=== PATIENT | female | born 1975 | race African-American/Black ===

== ENCOUNTER 2018-06-11 14:00 | Inpatient (IN) | payer OTHER ==
[2018-06-11 16:08] VITALS: BMI 25.9
[2018-06-11] MEDS ORDERED: chlordiazePOXIDE HCL 25 MG CAPSULE PO SCH (17:00)
--- NOTE | 2018-06-11 17:23 | HP ---
CIWA Score Nausea/Vomitin-No Nausea/No Vomiting Muscle Tremors: 4-Moderate,w/Arms Extend Anxiety: 4-Mod. Anxious/Guarded Agitation: 4-Moderately Restless Paroxysmal Sweats: No Perspiration Orientation: 0-Oriented Tacttile Disturbances: 0-None Auditory Disturbances: 0-None Visual Disturbances: 0-None Headache: 0-None Present CIWA-Ar Total Score: 12 - Admission Criteria OASAS Guidelines: Admission for Medically Managed Detox: Requires at least one of the followin. CIWA greater than 12 2. Seizures within the past 24 hours 3. Delirium tremens within the past 24 hours 4. Hallucinations within the past 24 hours 5. Acute intervention needed for co occurring medical disorder 6. Acute intervention needed for co occurring psychiatric disorder 7. Severe withdrawal that cannot be handled at a lower level of care (continued vomiting, continued diarrhea, abnormal vital signs) requiring intravenous medication and/or fluids 8. Patient presents the following: CIWA greater than 12, Acute intervention needed for co-occurring med or psych disorder Admission Criteria Met: Admission criteria met Admission ROS [facility] Allergies/Adverse Reactions: Allergies Allergy/AdvReac Type Severity Reaction Status Date / Time No Known Allergies Allergy Verified 06/11/18 17:16 History of Present Illness: patient here requesting detox from etoh use reports 1/5 /day and 4 shireen x 15 years, first age of use 1 . This is the patient's second detox , prior at [facility] April 2018 , admin d/c . Current MARIBEL 0.073 , latest use today , usually starts drinking around 9 am, reports tremors , nausea if not drinking + blackouts, no seizures , + falls while intoxicated , most recently March 2018 no fractures . Does not drive . Currently in outpatient clinic [facility]. tobacco : 06/03-1/ ppd cannabis : 1 oz q 3 d . cocaine : " there is no limit " , 800-1000 $ / 24 hrs xanax - rx latest 2 mo ago PMHX : hypothyroidism, gerd , migraine SANTIAGO , asthma ( [place] / [place] ) , HIV + dx 1 mo ago [facility]version [facility] RF = ST , AVN left hip, left knee, PSHx : partial thyroidectomy 2004 , CHIARA & BSO 2016 , inder , Sp fundoplication for hiatal hernia , C-sx x 3 , umbilical hernia , right foot bunionectomy Psych : bipolar d/o , panic d/o anxiety , agoraphobia , SAD has 6 adult children SHx : lives alone , unemployed , online college , on SSI Exam Limitations: No Limitations - Ebola screening Have you traveled outside of the country in the last 21 days: No (N) Have you had contact with anyone from an Ebola affected area: No Have you been sick,other than usual withdrawal symptoms: No Do you have a fever: No - Review of Systems Constitutional: See HPI, Other EENT: reports: See HPI, Other (glasses - bifocals , denies dysphagia) Respiratory: reports: No Symptoms reported Cardiac: reports: No Symptoms Reported GI: reports: See HPI : reports: No Symptoms Reported Musculoskeletal: reports: Joint Pain (left hip and left knee) Integumentary: reports: Dryness Neuro: reports: See HPI Endocrine: reports: See HPI Psychiatric: reports: Orientated x3, Agitated, Anxious Patient History - Smoking Cessation Smoking history: Current every day smoker Have you smoked in the past 12 months: Yes Hx Chewing Tobacco Use: No Initiated information on smoking cessation: No Family Disease History - Family Disease History Family Disease History: Other: Father (MD d. age 39 ), Mother (d. AIDS age 39) , Brother (18 half - siblings does not keep in touch ), Son (A & W x5 ), Daughter (sickle cell trait ) Other Family History: 1 granddaughter with sickle cell trait Admission Physical Exam BHS - Vital Signs Vital Signs: Vital Signs - 24 hr 06/11/18 16:04 Temperature 97.3 F L Pulse Rate 105 H Respiratory 18 Rate Blood Pressure 110/65 - Physical General Appearance: Yes: Mild Distress, Anxious HEENTM: Yes: EOMI, Hearing grossly Normal, Normocephalic, Normal Voice Respiratory: Yes: Chest Non-Tender, Lungs Clear, Normal Breath Sounds Neck: Yes: No masses,lesions,Nodules, Trachea in good position, Other (surgical scar) Breast: Yes: Breast Exam Deferred Cardiology: Yes: Regular Rhythm, Regular Rate, S1, S2, Tachycardia Abdominal: Yes: Normal Bowel Sounds, Non Tender, Soft Genitourinary: Yes: Within Normal Limits Back: Yes: Normal Inspection Musculoskeletal: Yes: Gait Steady, Joint Stiffness Extremities: Yes: Normal Range of Motion, Tremors Neurological: Yes: Motor Strength 5/5, Normal Mood/Affect Integumentary: Yes: Normal Color, Dry - Diagnostic (1) Alcohol dependence Current Visit: Yes Status: Acute Qualifiers: Substance use status: in withdrawal (2) Cocaine dependence Current Visit: Yes Status: Chronic Qualifiers: Substance use status: uncomplicated Qualified Code(s): F14.20 - Cocaine dependence, uncomplicated (3) Nicotine dependence Current Visit: Yes Status: Chronic Qualifiers: Nicotine product type: cigarettes (4) Cannabis dependence Current Visit: Yes Status: Chronic BHS Breath Alcohol Content Breath Alcohol Content: 0.073 Urine Pregancy Test - Result Urine Test Results: Negative- NO Line Present Urine Drug Screen - Results Drug Screen Negative: No Urine Drug Screen Results: THC-Marijuana, FRANCHESCA-Cocaine, BZO-Benzodiazepines
[2018-06-11] MEDS ORDERED: MAGNESIUM HYDROX 2400MG/30ML ORAL SUSPENSION 30 ML CUP PO PRN (17:57)
[2018-06-11] MEDS ORDERED: IBUPROFEN 400 MG TABLET (FP) PO PRN (17:57)
[2018-06-11] MEDS ORDERED: MAGNESIUM CITRATE 300 ML BOTTLE PO PRN (17:57)
[2018-06-11] MEDS ORDERED: guaiFENesin/D-METHORPHAN HB 10 ML UNIT-DOSE CUPS PO PRN (17:57)
[2018-06-11] MEDS ORDERED: NICOTINE POLACRILEX 2 MG GUM BC PRN (17:57)
[2018-06-11] MEDS ORDERED: MENTHOL/PHENOL 1 EACH UD MM PRN (17:57)
[2018-06-11] MEDS ORDERED: ACETAMINOPHEN 325 MG TABLET (FP) PO PRN (17:57)
[2018-06-11] MEDS ORDERED: chlordiazePOXIDE HCL 25 MG CAPSULE PO PRN (17:57)
[2018-06-11] MEDS ORDERED: MAG HYDROX/AL HYDROX/SIMETH 30 ML UNIT-DOSE CUP PO PRN (17:57)
[2018-06-11] MEDS ORDERED: P-EPHED 60MG/TRIPROLIDI 2.5MG TABLET PO PRN (17:57)
[2018-06-11] MEDS ORDERED: ALBUTEROL SO4 8 GM HFA INHALER IH PRN (18:01)
[2018-06-11] MEDS ORDERED: ALBUTEROL SO4 0.083% IH SOL 2.5 MG/3 ML VIAL.NEB. NEB PRN (18:01)
[2018-06-11] MEDS ORDERED: BENZOYL PEROXIDE 5% 60 GM GEL..GRAM. TP ONE (18:33)
[2018-06-11] MEDS ORDERED: MELATONIN 5 MG TABLETS PO PRN (22:00)
[2018-06-11] MEDS: chlordiazePOXIDE HCL 25 MG CAPSULE PO SCH ×2 (23:30)
[2018-06-11] MEDS: CLINDAMYCIN PHOSPHATE 1% TOPICAL GEL 30 GM TUBE TP SCH (23:32)
[2018-06-11] MEDS: BETAMETHASONE VALER 0.1% OINT 15 GM TUBE TP SCH (23:33)
[2018-06-11] MEDS: THIAMINE HCL 100 MG TABLET (FP) PO SCH (23:33)
[2018-06-12] MEDS: chlordiazePOXIDE HCL 25 MG CAPSULE PO SCH ×4 (05:52→22:30)
[2018-06-12] MEDS: LEVOTHYROXINE NA 25 MCG TABLET (FP) PO SCH (06:52)
[2018-06-12] MEDS ORDERED: LEVOTHYROXINE NA 75 MCG TABLET (FP) PO SCH (07:00)
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
[2018-06-12 10:51] LABS: HEMATOCRIT 37.6 % (32.4-45.2); MCH 28.9 pg (25.7-33.7); MCHC 31.8 g/dl (32.0-36.0); MEAN CELL VOLUME 90.8 fl (80-96); MEAN PLT VOLUME 9.1 fl (7.5-11.1); PLATELET COUNT 197 K/MM3 (134-434); RBC 4.14 M/mm3 (3.60-5.2); RDW 18.3 % (11.6-15.6); WHITE BLOOD COUNT 3.4 K/mm3 (4.0-10.0)
[2018-06-12 11:00] LABS: ALBUMIN 2.8 g/dl (3.4-5.0); ALK PHOS 66 U/L (45-117); ANION GAP 5 MMOL/L (8-16); BILIRUBIN,TOTAL 0.5 mg/dL (0.2-1); BLOOD UREA NITROGEN 17 mg/dL (7-18); CALCIUM 8.3 mg/dL (8.5-10.1); CHLORIDE 103 mmol/L (98-107); CO2 29 mmol/L (21-32); GLUCOSE,RANDOM 77 mg/dL (74-106); POTASSIUM 4.1 mmol/L (3.5-5.1); SGOT/AST 10 U/L (15-37); SGPT/ALT 16 U/L (13-61); SODIUM 137 mmol/L (136-145); TOT PROT 6.3 g/dl (6.4-8.2)
[2018-06-12] MEDS: CLINDAMYCIN PHOSPHATE 1% TOPICAL GEL 30 GM TUBE TP SCH ×2 (11:22→22:30)
[2018-06-12] MEDS: PANTOPRAZOLE 40 MG TABLET (FP) PO SCH (11:22)
[2018-06-12] MEDS: PRENATAL VITAMINS W/ FOLIC ACID TABLET (FP) PO SCH (11:23)
[2018-06-12] MEDS: NICOTINE 14 MG/24 HOURS TOPICAL PATCH TD SCH (11:23)
[2018-06-12] MEDS: DOLUTEGRAVIR SODIUM 50 MG TABLET (NON-FORMULARY) PO SCH (11:24)
[2018-06-12] MEDS: EMTRICITABINE 200MG/TENOFOVIR 300MG PO SCH (11:24)
[2018-06-12] MEDS: BETAMETHASONE VALER 0.1% OINT 15 GM TUBE TP SCH ×2 (11:25→22:30)
--- NOTE | 2018-06-12 14:59 | PN ---
S CIWA - CIWA Score Nausea/Vomitin-Mild Nausea/No Vomiting Muscle Tremors: 3 Anxiety: 1-Mildly Anxious Agitation: 2 Paroxysmal Sweats: 1-Minimal Palms Moist Orientation: 0-Oriented Tacttile Disturbances: 0-None Auditory Disturbances: 0-None Visual Disturbances: 0-None Headache: 1-Very Mild CIWA-Ar Total Score: 9 S Progress Note (SOAP) Subjective: tremor sweating mild gi distress Objective: 06/12/18 14:57 Vital Signs Temperature 97.5 F L 06/12/18 09:57 Pulse Rate 87 06/12/18 09:57 Respiratory Rate 18 06/12/18 09:57 Blood Pressure 101/66 06/12/18 09:57 O2 Sat by Pulse Oximetry (%) Laboratory Last Values WBC 3.4 K/mm3 (4.0-10.0) L 06/12/18 07:50 RBC 4.14 M/mm3 (3.60-5.2) 06/12/18 07:50 Hgb 12.0 GM/dL (10.7-15.3) 06/12/18 07:50 Hct 37.6 % (32.4-45.2) 06/12/18 07:50 MCV 90.8 fl (80-96) 06/12/18 07:50 MCH 28.9 pg (25.7-33.7) 06/12/18 07:50 MCHC 31.8 g/dl (32.0-36.0) L 06/12/18 07:50 RDW 18.3 % (11.6-15.6) H 06/12/18 07:50 Plt Count 197 K/MM3 (134-434) 06/12/18 07:50 MPV 9.1 fl (7.5-11.1) 06/12/18 07:50 Sodium 137 mmol/L (136-145) 06/12/18 07:50 Potassium 4.1 mmol/L (3.5-5.1) 06/12/18 07:50 Chloride 103 mmol/L (98-107) 06/12/18 07:50 Carbon Dioxide 29 mmol/L (21-32) 06/12/18 07:50 Anion Gap 5 MMOL/L (8-16) L 06/12/18 07:50 BUN 17 mg/dL (7-18) 06/12/18 07:50 Creatinine 1.0 mg/dL (0.55-1.3) 06/12/18 07:50 Creat Clearance w eGFR > 60 (>60) 06/12/18 07:50 Random Glucose 77 mg/dL (74-106) 06/12/18 07:50 Calcium 8.3 mg/dL (8.5-10.1) L 06/12/18 07:50 Total Bilirubin 0.5 mg/dL (0.2-1) 06/12/18 07:50 AST 10 U/L (15-37) L 06/12/18 07:50 ALT 16 U/L (13-61) 06/12/18 07:50 Alkaline Phosphatase 66 U/L (45-117) 06/12/18 07:50 Total Protein 6.3 g/dl (6.4-8.2) L 06/12/18 07:50 Albumin 2.8 g/dl (3.4-5.0) L 06/12/18 07:50 RPR Titer Nonreactive (NONREACTIVE) 06/12/18 07:50 lab noted Assessment: 06/12/18 14:59 withdrawal sx Plan: continue detox
[2018-06-12] MEDS: QUEtiapine FUMARATE 400 MG TABLET PO SCH (22:29)
[2018-06-12] MEDS: DIVALPROEX SODIUM 500 MG TABLET E.C. PO SCH (22:30)
[2018-06-12] MEDS: THIAMINE HCL 100 MG TABLET (FP) PO SCH (22:32)
[2018-06-13] MEDS: LEVOTHYROXINE NA 25 MCG TABLET (FP) PO SCH (06:04)
[2018-06-13] MEDS: chlordiazePOXIDE HCL 25 MG CAPSULE PO SCH ×2 (06:05→10:46)
[2018-06-13] MEDS: NICOTINE 14 MG/24 HOURS TOPICAL PATCH TD SCH (10:45)
[2018-06-13] MEDS ORDERED: LIDOCAINE 5% TOPICAL PATCH TP ONE (10:45)
[2018-06-13] MEDS: CLINDAMYCIN PHOSPHATE 1% TOPICAL GEL 30 GM TUBE TP SCH ×2 (10:46→22:12)
[2018-06-13] MEDS: PRENATAL VITAMINS W/ FOLIC ACID TABLET (FP) PO SCH (10:46)
[2018-06-13] MEDS: PANTOPRAZOLE 40 MG TABLET (FP) PO SCH (10:46)
[2018-06-13] MEDS: DOLUTEGRAVIR SODIUM 50 MG TABLET (NON-FORMULARY) PO SCH (10:47)
[2018-06-13] MEDS: EMTRICITABINE 200MG/TENOFOVIR 300MG PO SCH (10:48)
[2018-06-13] MEDS: BETAMETHASONE VALER 0.1% OINT 15 GM TUBE TP SCH ×2 (10:48→22:14)
--- NOTE | 2018-06-13 11:06 | PN ---
S CIWA - CIWA Score Nausea/Vomitin-No Nausea/No Vomiting Muscle Tremors: 3 Anxiety: 3 Agitation: 2 Paroxysmal Sweats: No Perspiration Orientation: 0-Oriented Tacttile Disturbances: 0-None Auditory Disturbances: 0-None Visual Disturbances: 0-None Headache: 0-None Present CIWA-Ar Total Score: 8 BHS Progress Note (SOAP) Subjective: irritable agitation anxiety body aches shakes sweats Objective: 06/13/18 11:05 Vital Signs Temperature 98.2 F 06/13/18 09:25 Pulse Rate 75 06/13/18 09:25 Respiratory Rate 16 06/13/18 09:25 Blood Pressure 109/58 L 06/13/18 09:25 O2 Sat by Pulse Oximetry (%) Laboratory Tests 06/12/18 06/12/18 06/12/18 07:50 07:50 07:50 WBC 3.4 L RBC 4.14 Hgb 12.0 Hct 37.6 MCV 90.8 MCH 28.9 MCHC 31.8 L RDW 18.3 H Plt Count 197 MPV 9.1 Sodium 137 Potassium 4.1 Chloride 103 Carbon Dioxide 29 Anion Gap 5 L BUN 17 Creatinine 1.0 Creat Clearance w eGFR > 60 Random Glucose 77 Calcium 8.3 L Total Bilirubin 0.5 AST 10 L ALT 16 Alkaline Phosphatase 66 Total Protein 6.3 L Albumin 2.8 L Valproic Acid RPR Titer Nonreactive 06/13/18 07:00 WBC RBC Hgb Hct MCV MCH MCHC RDW Plt Count MPV Sodium Potassium Chloride Carbon Dioxide Anion Gap BUN Creatinine Creat Clearance w eGFR Random Glucose Calcium Total Bilirubin AST ALT Alkaline Phosphatase Total Protein Albumin Valproic Acid 62.3 RPR Titer aaox3 ambulating no acute distress Assessment: 06/13/18 11:05 withdrawal sx Plan: continue detox increase fluids cane ordered lidocaine patch analgesic balm naproxen 500mg bid
[2018-06-13] MEDS: NAPROXEN 500 MG TABLET (FP) PO SCH ×2 (11:45→22:13)
[2018-06-13] MEDS: chlordiazePOXIDE 5 MG CAPSULE PO SCH ×2 (17:38→22:13)
--- NOTE | 2018-06-13 18:09 | PN ---
BHS Progress Note Note: Pt states she takes a steroid inhaler-flovent. Will give asmanex 220ug BID
[2018-06-13] MEDS: MOMETASONE FUROATE 220 MCG/IH INHALER IH SCH (22:12)
[2018-06-13] MEDS: DIVALPROEX SODIUM 500 MG TABLET E.C. PO SCH (22:13)
[2018-06-13] MEDS: LIDOCAINE PATCH REMOVAL MC SCH (22:13)
[2018-06-13] MEDS: THIAMINE HCL 100 MG TABLET (FP) PO SCH (22:14)
[2018-06-13] MEDS: QUEtiapine FUMARATE 400 MG TABLET PO SCH (22:14)
[2018-06-14] MEDS: chlordiazePOXIDE 5 MG CAPSULE PO SCH ×2 (05:31→10:54)
[2018-06-14] MEDS: LEVOTHYROXINE NA 25 MCG TABLET (FP) PO SCH (07:33)
--- NOTE | 2018-06-14 09:43 | PN ---
BHS Progress Note (SOAP) Subjective: hip pain little sweats Objective: 06/14/18 09:42 Vital Signs Temperature 97.3 F L 06/14/18 09:28 Pulse Rate 97 H 06/14/18 09:28 Respiratory Rate 18 06/14/18 09:28 Blood Pressure 112/50 L 06/14/18 09:28 O2 Sat by Pulse Oximetry (%) aaox3 ambulating well with her cane no acute distress Assessment: 06/14/18 09:43 mild withdrawal sx Plan: continue detox increase fluids d/c in am
[2018-06-14] MEDS: CLINDAMYCIN PHOSPHATE 1% TOPICAL GEL 30 GM TUBE TP SCH ×2 (10:53→22:17)
[2018-06-14] MEDS: MOMETASONE FUROATE 220 MCG/IH INHALER IH SCH ×2 (10:53→22:18)
[2018-06-14] MEDS: BETAMETHASONE VALER 0.1% OINT 15 GM TUBE TP SCH ×2 (10:53→22:17)
[2018-06-14] MEDS: NICOTINE 14 MG/24 HOURS TOPICAL PATCH TD SCH (10:53)
[2018-06-14] MEDS: NAPROXEN 500 MG TABLET (FP) PO SCH ×2 (10:54→22:18)
[2018-06-14] MEDS: PRENATAL VITAMINS W/ FOLIC ACID TABLET (FP) PO SCH (10:54)
[2018-06-14] MEDS: PANTOPRAZOLE 40 MG TABLET (FP) PO SCH (10:54)
[2018-06-14] MEDS: EMTRICITABINE 200MG/TENOFOVIR 300MG PO SCH (10:55)
[2018-06-14] MEDS: DOLUTEGRAVIR SODIUM 50 MG TABLET (NON-FORMULARY) PO SCH (10:55)
[2018-06-14] MEDS: LIDOCAINE 5% TOPICAL PATCH TP SCH (11:32)
[2018-06-14] MEDS: chlordiazePOXIDE HCL 10 MG CAPSULE PO SCH ×2 (17:43→22:18)
[2018-06-14] MEDS: DIVALPROEX SODIUM 500 MG TABLET E.C. PO SCH (22:18)
[2018-06-14] MEDS: THIAMINE HCL 100 MG TABLET (FP) PO SCH (22:18)
[2018-06-14] MEDS: LIDOCAINE PATCH REMOVAL MC SCH (22:18)
[2018-06-14] MEDS: QUEtiapine FUMARATE 400 MG TABLET PO SCH (22:18)
[2018-06-15] MEDS: LEVOTHYROXINE NA 25 MCG TABLET (FP) PO SCH (06:27)
[2018-06-15] MEDS: chlordiazePOXIDE HCL 10 MG CAPSULE PO SCH (06:27)
--- NOTE | 2018-06-15 09:27 | DS ---
[facility] Detox Discharge Summary Admission Date: 06/11/18 Discharge Date: 06/15/18 - History Present History: Alcohol Dependence, Cannabis Dependence, Cocaine Dependence - Physical Exam Results Vital Signs: Vital Signs Temperature 97.7 F 06/15/18 07:37 Pulse Rate 82 06/15/18 07:37 Respiratory Rate 20 06/15/18 07:37 Blood Pressure 124/71 06/15/18 07:37 O2 Sat by Pulse Oximetry (%) - Treatment Hospital Course: Detox Protocol Followed, Detoxed Safely, Responded well, Discharged Condition Good, Rehab Referral Accepted - Medication Discharge Medications: Ambulatory Orders Albuterol Sulfate Inhaler - [Ventolin Hfa Inhaler -] 1 - 2 inh PO Q4H 06/11/18 Betamethasone Valerate [Valisone] 1 applic TP DAILY 06/11/18 Divalproex *ER* [Depakote *ER* -] 500 mg PO HS 06/11/18 Dolutegravir Sodium [Tivicay] 50 mg PO DAILY 06/11/18 Emollient Base [Vanicream] 453 gm TP DAILY 06/11/18 Emtricitabine/Tenofovir [Truvada] 1 tab PO DAILY 06/11/18 Levothyroxine [Synthroid -] 75 mcg PO DAILY 06/11/18 Pantoprazole Sodium [Protonix] 40 mg PO DAILY 06/11/18 Quetiapine Fumarate [Seroquel -] 200 mg PO HS 06/11/18 Quetiapine Fumarate [Seroquel -] 400 mg PO HS 06/11/18 - Diagnosis (1) Alcohol dependence Current Visit: Yes Status: Acute Qualifiers: Substance use status: in withdrawal (2) Cannabis dependence Current Visit: Yes Status: Chronic (3) Cocaine dependence Current Visit: Yes Status: Chronic Qualifiers: Substance use status: uncomplicated Qualified Code(s): F14.20 - Cocaine dependence, uncomplicated (4) Asthma Current Visit: Yes Status: Chronic (5) GERD (gastroesophageal reflux disease) Current Visit: Yes Status: Chronic Qualifiers: Esophagitis presence: without esophagitis Qualified Code(s): K21.9 - Gastro -esophageal reflux disease without esophagitis (6) HIV (human immunodeficiency virus infection) Current Visit: Yes Status: Chronic Qualifiers: HIV symptom status: unspecified Qualified Code(s): B20 - Human immunodeficiency virus [HIV] disease (7) Hypothyroidism Current Visit: Yes Status: Chronic (8) Migraine headache Current Visit: Yes Status: Chronic (9) Nicotine dependence Current Visit: Yes Status: Chronic Qualifiers: Nicotine product type: cigarettes Substance use status: uncomplicated Qualified Code(s): F17.210 - Nicotine dependence, cigarettes, uncomplicated (10) PTSD (post-traumatic stress disorder) Current Visit: Yes Status: Chronic (11) Panic disorder with agoraphobia Current Visit: Yes Status: Chronic (12) Schizoaffective disorder Current Visit: Yes Status: Chronic - AMA Did Patient Leave Against Medical Advice: No (referred to [facility] outpatient rehab)
[2018-06-15] MEDS: EMTRICITABINE 200MG/TENOFOVIR 300MG PO SCH (09:55)
[2018-06-15] MEDS: DOLUTEGRAVIR SODIUM 50 MG TABLET (NON-FORMULARY) PO SCH (09:55)
[2018-06-15] MEDS: BETAMETHASONE VALER 0.1% OINT 15 GM TUBE TP SCH (09:56)
[2018-06-15] MEDS: MOMETASONE FUROATE 220 MCG/IH INHALER IH SCH (09:56)
[2018-06-15] MEDS: CLINDAMYCIN PHOSPHATE 1% TOPICAL GEL 30 GM TUBE TP SCH (09:56)
[2018-06-15] MEDS: PRENATAL VITAMINS W/ FOLIC ACID TABLET (FP) PO SCH (09:57)
[2018-06-15] MEDS: PANTOPRAZOLE 40 MG TABLET (FP) PO SCH (09:57)
[2018-06-15] MEDS: NAPROXEN 500 MG TABLET (FP) PO SCH (09:57)
[2018-06-15] MEDS: NICOTINE 14 MG/24 HOURS TOPICAL PATCH TD SCH (10:36)
[2018-06-15] MEDS: LIDOCAINE 5% TOPICAL PATCH TP SCH (10:36)
[2018-06-15 11:27] VITALS: BP 126/64; PULSE 104; TEMP 96.3
== END 2018-06-15 13:21 | disposition home or self-care (01) | DRG 774 ==
LOC: YASAS 14:00 → Y6N 20:17
PROC: HZ2ZZZZ Detoxification Services for Substance Abuse Treatment (ICD-10-PCS; principal; 2018-06-11)
DX: F10.230 Alcohol dependence with withdrawal, uncomplicated (principal); F14.20 Cocaine dependence, uncomplicated; F12.20 Cannabis dependence, uncomplicated; F17.210 Nicotine dependence, cigarettes, uncomplicated; F43.10 Post-traumatic stress disorder, unspecified; F25.9 Schizoaffective disorder, unspecified; F40.01 Agoraphobia with panic disorder; Z21 Asymptomatic human immunodeficiency virus [HIV] infection status; J45.909 Unspecified asthma, uncomplicated; K21.9 Gastro-esophageal reflux disease without esophagitis; E03.9 Hypothyroidism, unspecified; G43.909 Migraine, unspecified, not intractable, without status migrainosus
CPT/HCPCS: 36415; 80053; 80164; 85027; 86593